=== PATIENT | female | born 1965 | race African-American/Black ===

== ENCOUNTER 2020-05-29 12:55 | Outpatient (CLI) | payer BC, OTHER ==
[2020-05-30 12:51] LABS: SARS-CoV-2 MS2 Positive; SARS-CoV-2 N Gene Negative; SARS-CoV-2 S Gene Negative; SARS-CoV-2 by NAA Not Detected (NotDetected); SARS-CoV-2 orf1ab Negative
== END 2020-05-29 12:56 | disposition home or self-care (01) ==
LOC: LABBT 12:55
PROVIDERS: ATTEND Family Medicine
DX: H33.41 Traction detachment of retina, right eye (principal); Z20.828 Contact with and (suspected) exposure to other viral communicable diseases
CPT/HCPCS: 87635; U0003

== ENCOUNTER 2020-06-03 08:06 | Day surgery (SDC) | payer BC ==
[2020-06-02 13:11] VITALS: BMI 29.2
[~2020-06-03 08:06] MED LIST: EPINEPHrine 0.3 MG in Ophthalmic Irrigation Solution 500 ML IRR SCH
[2020-06-03] MEDS ORDERED: Phenylephrine 2.5% Ophth Soln 5 ML BOT ONE (08:39)
[2020-06-03] MEDS ORDERED: Cyclopentolate 1% Opth Drop 2 ML BOT ONE (08:39)
[2020-06-03] MEDS ORDERED: Fentanyl 100 MCG/2 ML VIAL ONE (09:01)
[2020-06-03] MEDS ORDERED: Midazolam HCl 2 mg/2 ml Vial ONE (09:01)
[2020-06-03] MEDS ORDERED: CEFAZOLIN 1 GM VIAL ONE (10:01)
[2020-06-03] MEDS ORDERED: Lidocaine 1% PF 5 ML VIAL ONE ×2 (10:01)
[2020-06-03] MEDS ORDERED: Bupivacaine PF 0.75% SDV 10 ML ONE (10:01)
[2020-06-03] MEDS ORDERED: Ondansetron PF 4 MG/2 ML Vial ONE (10:01)
[2020-06-03] MEDS ORDERED: Lidocaine 4% PF 5 ML AMP ONE (10:01)
[2020-06-03] MEDS ORDERED: Maxitrol 0.1% Opth Oint 3.5 GM TUBE ONE (10:01)
[2020-06-03] MEDS ORDERED: PROPOFOL 200 MG/20 ML VIAL ONE (10:01)
[2020-06-03] MEDS ORDERED: Triamcinolone 40 MG/ML VIAL ONE (10:01)
--- NOTE | 2020-06-03 16:19 | OP ---
DATE OF PROCEDURE: 06/03/2020 PREOPERATIVE DIAGNOSES: 1. Macula involving tractional retinal detachment, right eye. 2. Proliferative diabetic retinopathy, right eye. POSTOPERATIVE DIAGNOSES: 1. Macula involving tractional retinal detachment, right eye. 2. Proliferative diabetic retinopathy, right eye. PROCEDURE PERFORMED: 1. 25-gauge pars plana vitrectomy, right eye. 2. Tractional retinal detachment repair, right eye. 3. Air-fluid exchange, right eye. 4. Panretinal photocoagulation, right eye. 5. Silicone oil fill, right eye. ESTIMATED BLOOD LOSS: None. SPECIMENS REMOVED: None. COMPLICATIONS: None. ANESTHESIA: MAC with subtenon block. DESCRIPTION OF PROCEDURE: The patient was identified in the preoperative holding area where the correct eye being the right eye was marked for surgery. The patient was taken to the operating room, where MAC anesthesia was induced. The right eye was prepped and draped in the usual sterile fashion for surgery. A wire-clip lid speculum was placed. An inferonasal conjunctival peritomy was fashioned with Justin scissors for administration of subtenon block. The block consisted of 1:1 ratio of 4% lidocaine and 0.75% Marcaine. Total of 5 mL was administered. A standard 25-gauge pars plana vitrectomy platform was fashioned with trocars placed approximately 4 mm from the limbus. The infusion was noted to be within the vitreous cavity prior to being turned on to infusion pressure of 30 mmHg. The light pipe and microvitrector introduced in the eye under visualization of the BIOM viewing system. A tractional retinal detachment was noted encompassing the superotemporal and inferotemporal arcade in the temporal macula. A moderate vitreous hemorrhage was additionally noted and diffuse fibrosis was noted of the posterior pole. A careful core vitrectomy was performed followed by peripheral shave vitrectomy, taking care to relieve any vitreoretinal traction. Attention was subsequently turned to the fibrosis along the arcades and temporally which were delaminated and segmented with use of the microvitrector. This allowed for significant relaxation of the retina. Defects were noted in the retina superotemporally, superonasally, and inferonasally. The areas were marked with Endocautery. Endocautery was additionally used to maintain hemostasis as needed. Following complete removal of the preretinal fibrosis and re-excision of the retina, an air-fluid exchange was subsequently performed, which allowed for complete flattening of the retina. Endolaser was used to provide barricade around the three defects as well as provide panretinal photocoagulation in the typical fashion with sparing of the 3 and 9 o'clock meridians. Following laser, the flute needle was reintroduced in the eye to remove any residual subretinal fluid. Subsequently, a complete silicone oil fill was achieved. The cannulas were sequentially removed and all sclerotomies were sutured with 8-0 Vicryl suture. Following suturing, all sclerotomies were noted to be watertight. Subconjunctival Ancef and Kenalog were injected. The wire-clip lid speculum was removed followed by application of TobraDex ophthalmic ointment and a light patch and shield. The patient tolerated the procedure well and was taken to outpatient recovery area in good condition. Job ID: [id number]
== END 2020-06-03 12:40 | disposition home or self-care (01) ==
LOC: SDC 08:06
PROVIDERS: ATTEND Ophthalmology Retina Specialist
PROC: 08943ZZ Drainage of Right Vitreous, Percutaneous Approach (ICD-10-PCS; principal; 2020-06-03)
DX: E11.3521 Type 2 diabetes mellitus with proliferative diabetic retinopathy with traction retinal detachment involving the macula, right eye (principal); Z79.02 Long term (current) use of antithrombotics/antiplatelets; Z79.4 Long term (current) use of insulin; Z79.899 Other long term (current) drug therapy
CPT/HCPCS: 36416; C1814; J0171; J0690; J2001; J2250; J2405; J2704; J3010; J3301; J3490